=== PATIENT | female | born 1995 | race African-American/Black ===

== ENCOUNTER 2018-07-23 12:40 | Emergency (ER) | payer MEDICAID ==
[~2018-07-23] VITALS: Ht 170.2 cm; Wt 113.0 kg
[2018-07-23 14:21] VITALS: BP 132/74
== END 2018-07-23 15:55 | disposition home or self-care (01) ==
LOC: ER 12:40
DX: J06.9 Acute upper respiratory infection, unspecified (principal); J40 Bronchitis, not specified as acute or chronic
CPT/HCPCS: 99283

== ENCOUNTER 2024-02-17 07:07 | Emergency (ER) | payer MEDICAID ==
[~2024-02-17] VITALS: Ht 175.3 cm; Wt 127.0 kg
[2024-02-17 07:25] VITALS: TEMP 98.7; O2SAT 100
[2024-02-17 07:54] LABS: CHLORIDE 109 mEq/L (98-107); POTASSIUM 3.8 mEq/L (3.5-5.1); SODIUM 141 mEq/L (136-145)
[2024-02-17 07:55] LABS: CARBON DIOXIDE 28 mEq/L (21-32)
[2024-02-17 07:56] LABS: CALCIUM 11.3 mg/dL (8.7-10.4)
[2024-02-17 08:00] LABS: CREATININE 0.8 mg/dL (0.6-1.0); GLUCOSE 95 mg/dL (70-105)
[2024-02-17 08:01] LABS: UREA NITROGEN BLOOD 7 mg/dL (9-23)
[2024-02-17 08:03] LABS: BASOPHILS % 1.3 % (0.0-2.0); EOSINOPHILS % 3.1 % (0.0-5.0); HEMATOCRIT. 43.6 % (36.0-48.0); HEMOGLOBIN. 14.7 g/dL (12.0-16.0); LYMPHOCYTES % 37.6 % (20.0-50.0); MEAN CORPUSCULAR HEMOGLOBIN 29.4 pg (28.0-32.0); MEAN CORPUSCULAR HGB CONC 33.7 g/dL (31.0-37.0); MEAN CORPUSCULAR VOLUME 87.4 fL (81.0-99.0); MEAN PLATELET VOLUME 8.6 fl (7.4-10.4); MONOCYTES % 6.8 % (2.0-8.0); NEUTROPHILS % 51.2 % (40.0-76.0); PLATELET 286 x1000/uL (130-400); RED BLOOD CELL COUNT 4.99 mill/uL (4.2-5.4); RED CELL DISTRIBUTION WIDTH 15.1 % (11.6-14.6); WHITE BLOOD COUNT 6.4 x1000/uL (4.5-11.0)
[2024-02-17 08:41] LABS: B-HCG QUANTITATIVE < 1 mIU/mL (<3)
[2024-02-17] MEDS ORDERED: DOXY150T8 MT (10:12)
[2024-02-17] MEDS: ONDANSETRON HCL 4MG/2ML INJ IM SCH (10:46)
[2024-02-17 10:47] VITALS: BP 151/95; PULSE 100; RESP 18
[2024-02-17] MEDS: KETOROLAC 15MG/ML VIAL IV NR (10:47)
[2024-02-17] MEDS: CEFTRIAXONE SODIUM 1G VIAL IM NR (10:47)
[2024-02-20 04:09] LABS: CHLAMYDIA TRACHOMATIS NAA Negative (Negative); NEISSERIA GONORRHOEAE NAA Negative (Negative)
== END 2024-02-17 11:24 | disposition home or self-care (01) ==
LOC: ER 07:07
DX: R10.9 Unspecified abdominal pain (principal); F17.200 Nicotine dependence, unspecified, uncomplicated; Z11.3 Encounter for screening for infections with a predominantly sexual mode of transmission
CPT/HCPCS: 87491; 87591; 80048; 81025; 84702; 85025; 86850; 86900; 86901; 87210; 36415; 96372; 96374; 99284; J0696; J1885; J2405; Z7610